=== PATIENT | female | born 1945 | race Caucasian/White ===

== ENCOUNTER 2023-02-20 09:55 | Outpatient (CLI) | payer MEDICARE, SELFPAY ==
--- NOTE | ~2023-02-20 | US_ITS ---
EXAMINATION: US abdomen complete DATE: 02/20/2023 10:39 INDICATION: right upper quadrant pain TECHNIQUE: Multiple grayscale and Doppler ultrasound images of the abdomen were obtained. COMPARISON: None available. FINDINGS: The pancreas is mostly obscured. The liver is normal with normal echogenicity and echotextu re. No surface nodularity. Normal hepatopetal flow in the main portal vein. The gallbladder is normal with no abnormal wall thickening, pericholecystic fluid or stones. The common bile duct measures 3 m m. There was no sonographic Love sign. The visualized portions of the aorta and inferior vena cava are normal. The right kidney measures 8.2 x 3.6 x 3.8 cm. The left kidney measures 9.0 x 3.4 x 4.5 cm. The kidney s demonstrate normal parenchymal echogenicity. There is no hydronephrosis. The spleen is normal in ap pearance and measures 9.7 cm. IMPRESSION: Poorly visualized pancreas, otherwise normal abdominal ultrasound findings. Reviewed, dictated and finalized at location K.
== END 2023-02-20 09:56 | disposition home or self-care (01) ==
LOC: CHSIMG 10:02
PROVIDERS: PCP Family Medicine
DX: R10.11 Right upper quadrant pain (principal)
CPT/HCPCS: 76700